=== PATIENT | female | born 1940 ===

== ENCOUNTER 2018-10-08 10:13 | Outpatient (CLI) | payer MEDICARE, OTHER | END 2018-10-08 10:14 | disposition home or self-care (01) | LOC: C.CTH 10:13 | DX: R10.32 Left lower quadrant pain (principal) ==

== ENCOUNTER 2018-10-22 10:36 | Outpatient (CLI) | payer MEDICARE, OTHER | END 2018-10-22 10:37 | disposition home or self-care (01) | LOC: C.DEXAIC 10:37 ==